=== PATIENT | female | born 1955 | race Asian ===

== ENCOUNTER → 2017-09-21 | Outpatient (CLI) | payer BC | END | disposition home or self-care (01) | LOC: RAD 12:35 | DX: R05 Cough (principal) | CPT/HCPCS: 71046 ==

== ENCOUNTER 2018-10-13 19:42 | Emergency (ER) | payer BC | END 2018-10-13 22:58 | disposition home or self-care (01) | LOC: E/R 19:42 | DX: S00.81XA Abrasion of other part of head, initial encounter (principal); S19.9XXA Unspecified injury of neck, initial encounter; R40.2412 Glasgow coma scale score 13-15, at arrival to emergency department; E03.9 Hypothyroidism, unspecified; R51 Headache; W01.198A Fall on same level from slipping, tripping and stumbling with subsequent striking against other object, initial encounter; Y92.009 Unspecified place in unspecified non-institutional (private) residence as the place of occurrence of the external cause | CPT/HCPCS: 70450; 72125; 99284-25 ==